=== PATIENT | female | born 1990 | race Caucasian/White ===

== ENCOUNTER 2017-11-05 01:00 | Emergency (ER) | payer MEDICAID ==
[~2017-11-05] VITALS: Ht 172.7 cm; Wt 75.7 kg
[2017-11-05 01:06] VITALS: Ht 172.7 cm; Wt 75.7 kg
[2017-11-05 05:54] VITALS: BP 127/71
== END 2017-11-05 05:15 | disposition home or self-care (01) ==
LOC: ED 01:00
DX: R07.2 Precordial pain (principal); M25.511 Pain in right shoulder; W22.8XXA Striking against or struck by other objects, initial encounter; Y93.89 Activity, other specified; Y92.89 Other specified places as the place of occurrence of the external cause; Y99.8 Other external cause status
CPT/HCPCS: Q0092

== ENCOUNTER 2017-11-30 14:41 | Emergency (ER) | payer MEDICAID ==
[~2017-11-30] VITALS: Ht 172.7 cm; Wt 64.0 kg
[2017-11-30 14:46] VITALS: Ht 172.7 cm; Wt 64.0 kg
[2017-11-30 15:41] VITALS: BP 131/57
== END 2017-11-30 15:41 | disposition home or self-care (01) ==
LOC: ED 14:41
DX: M94.0 Chondrocostal junction syndrome [Tietze] (principal); F15.20 Other stimulant dependence, uncomplicated
CPT/HCPCS: J1885

== ENCOUNTER 2018-01-14 11:50 | Inpatient (IN) | payer MEDICAID ==
[~2018-01-14] VITALS: Ht 172.7 cm; Wt 68.5 kg
[2018-01-14 12:02] VITALS: Ht 172.7 cm; Wt 68.5 kg
[2018-01-14 14:32] LABS: BASOPHIL % 0.6 % (0-2)
[2018-01-14 14:45] LABS: CALCIUM 9.2 mg/dL (8.5-10.1); CARBON DIOXIDE 28.1 mmol/L (21-32); CHLORIDE SERUM 101 mmol/L (98-107); CREATININE SERUM 0.7 mg/dL (0.6-1.0); GFR1 > 60 mL/min; GLUCOSE SERUM 77 mg/dL (74-106); POTASSIUM SERUM 3.4 mmol/L (3.5-5.1); SODIUM SERUM 138 mmol/L (136-145)
[2018-01-14 14:50] LABS: ALBUMIN 3.7 g/dL (3.4-5.0); ALKALINE PHOSPHATASE 103 U/L (46-116); ALT/SGPT 12 U/L (14-59); AST/SGOT 15 U/L (15-37); BILIRUBIN TOTAL 0.32 mg/dL (0.20-1.00); TOTAL PROTEIN, SERUM 8.1 g/dL (6.4-8.2)
[2018-01-14 15:00] LABS: PLATELET COUNT 465 x10^3mcL (130-400); RED CELL DISTRIBUTION WIDTH 14.6 % (11.5-14.5)
[2018-01-14 17:20] VITALS: BP 98/68
[2018-01-14 20:23] VITALS: BP 105/54
[2018-01-14 22:41] VITALS: BP 104/58
[2018-01-15 05:47] VITALS: BP 101/61
[2018-01-15 07:19] LABS: BASOPHIL % 0.5 % (0-2)
[2018-01-15 07:21] LABS: PLATELET COUNT 416 x10^3mcL (130-400); RED CELL DISTRIBUTION WIDTH 14.9 % (11.5-14.5)
[2018-01-15 07:27] LABS: CALCIUM 8.5 mg/dL (8.5-10.1); CARBON DIOXIDE 25.5 mmol/L (21-32); CHLORIDE SERUM 108 mmol/L (98-107); CREATININE SERUM 0.7 mg/dL (0.6-1.0); GFR1 > 60 mL/min; GLUCOSE SERUM 79 mg/dL (74-106); MAGNESIUM 2.1 mg/dL (1.8-2.4); PHOSPHOROUS 4.1 mg/dL (2.5-4.9); POTASSIUM SERUM 4.2 mmol/L (3.5-5.1); SODIUM SERUM 142 mmol/L (136-145)
[2018-01-15 08:17] VITALS: BP 109/63
[2018-01-15 12:36] VITALS: BP 100/70
[2018-01-15 17:05] VITALS: BP 91/59
[2018-01-15 20:29] VITALS: BP 98/65
[2018-01-16 05:02] VITALS: BP 97/55
[2018-01-16 06:36] LABS: BASOPHIL % 0.8 % (0-2); RED CELL DISTRIBUTION WIDTH 14.5 % (11.5-14.5)
[2018-01-16 06:52] LABS: CALCIUM 8.1 mg/dL (8.5-10.1); CARBON DIOXIDE 25.1 mmol/L (21-32); CHLORIDE SERUM 104 mmol/L (98-107); CREATININE SERUM 0.6 mg/dL (0.6-1.0); GFR1 > 60 mL/min; GLUCOSE SERUM 81 mg/dL (74-106); MAGNESIUM 2.2 mg/dL (1.8-2.4); SODIUM SERUM 137 mmol/L (136-145)
[2018-01-16 07:35] LABS: PLATELET COUNT 426 x10^3mcL (130-400)
[2018-01-16 09:12] VITALS: BP 96/54
[2018-01-16 13:32] VITALS: BP 98/62
[2018-01-16 17:56] VITALS: BP 95/62
[2018-01-16 21:15] VITALS: BP 97/57
[2018-01-17 05:20] VITALS: BP 99/63
[2018-01-17 07:56] VITALS: BP 103/67
[2018-01-17 11:47] VITALS: BP 103/67
[2018-01-17] MEDS ORDERED: KETOROLAC TROME10 MG PO (11:48)
[2018-01-17 12:36] VITALS: BP 105/61
== END 2018-01-17 16:48 | disposition home or self-care (01) | DRG 694 ==
LOC: ED 11:50 → DU 16:23
PROVIDERS: Emergency Medicine; Family Medicine
PROC: 0W983ZX Drainage of Chest Wall, Percutaneous Approach, Diagnostic (ICD-10-PCS; principal; 2018-01-15)
DX: D36.7 Benign neoplasm of other specified sites (principal); F12.10 Cannabis abuse, uncomplicated; F15.10 Other stimulant abuse, uncomplicated; Z68.22 Body mass index [BMI] 22.0-22.9, adult; Z59.0 Homelessness
CPT/HCPCS: C1729; J1885; J2001; J2543; J7030; Q9967

== ENCOUNTER 2018-04-25 20:17 | Emergency (ER) | payer MEDICAID ==
[~2018-04-25] VITALS: Ht 172.7 cm; Wt 64.4 kg
[~2018-04-25 20:17] MED LIST: KETOROLAC TROME10 MG PO
[2018-04-25 20:21] VITALS: Ht 172.7 cm; Wt 64.4 kg
[2018-04-25 21:13] VITALS: BP 112/69
== END 2018-04-25 21:13 | disposition home or self-care (01) ==
LOC: ED 20:17
DX: H69.90 Unspecified Eustachian tube disorder, unspecified ear (principal)

== ENCOUNTER 2018-05-04 17:50 | Emergency (ER) | payer MEDICAID ==
[~2018-05-04] VITALS: Ht 172.7 cm; Wt 64.9 kg
[2018-05-04 18:02] VITALS: BP 133/71; Ht 172.7 cm; Wt 64.9 kg
== END 2018-05-04 20:30 | disposition home or self-care (01) ==
LOC: ED 17:50
DX: S29.011A Strain of muscle and tendon of front wall of thorax, initial encounter (principal); X58.XXXA Exposure to other specified factors, initial encounter; Y93.89 Activity, other specified; Y92.89 Other specified places as the place of occurrence of the external cause; Y99.8 Other external cause status
CPT/HCPCS: Q0092

== ENCOUNTER 2018-06-30 16:46 | Emergency (ER) | payer MEDICAID ==
[~2018-06-30] VITALS: Ht 172.7 cm; Wt 66.7 kg
[2018-06-30 16:49] VITALS: Ht 172.7 cm; Wt 66.7 kg
[2018-06-30 19:19] LABS: BASOPHIL % 0.8 % (0-2); PLATELET COUNT 393 x10^3mcL (130-400); RED CELL DISTRIBUTION WIDTH 14.2 % (11.5-14.5)
[2018-06-30 19:25] LABS: UA SPECIFIC GRAVITY 1.025 (1.005-1.035); microscopic required? YES; urine erythrocyte TRACE (NEGATIVE)
[2018-06-30 19:31] LABS: CALCIUM 9.3 mg/dL (8.5-10.1); CHLORIDE SERUM 101 mmol/L (98-107); CREATININE SERUM 0.6 mg/dL (0.6-1.0); GFR1 > 60 mL/min; GLUCOSE SERUM 78 mg/dL (74-106); POTASSIUM SERUM 4.1 mmol/L (3.5-5.1); SODIUM SERUM 137 mmol/L (136-145)
[2018-06-30 19:35] LABS: ALBUMIN 3.5 g/dL (3.4-5.0); ALKALINE PHOSPHATASE 52 U/L (46-116); ALT/SGPT 15 U/L (14-59); AST/SGOT 12 U/L (15-37); BILIRUBIN TOTAL 0.1 mg/dL (0.20-1.00); TOTAL PROTEIN, SERUM 7.5 g/dL (6.4-8.2)
[2018-06-30 20:56] VITALS: BP 118/70
== END 2018-06-30 20:56 | disposition home or self-care (01) ==
LOC: ED 16:46
PROVIDERS: Emergency Medicine
DX: O20.0 Threatened abortion (principal)
CPT/HCPCS: 36415

== ENCOUNTER 2018-09-08 11:21 | Emergency (ER) | payer BC ==
[~2018-09-08] VITALS: Ht 175.3 cm; Wt 65.3 kg
[2018-09-08 11:49] VITALS: Ht 175.3 cm; Wt 65.3 kg
[2018-09-08 15:20] LABS: UA SPECIFIC GRAVITY <=1.005 (1.005-1.035); microscopic required? YES; urine erythrocyte NEGATIVE (NEGATIVE)
[2018-09-08 17:34] VITALS: BP 104/60
== END 2018-09-08 17:42 | disposition home or self-care (01) ==
LOC: ED 11:21
PROVIDERS: Emergency Medicine
DX: O26.892 Other specified pregnancy related conditions, second trimester (principal); O47.02 False labor before 37 completed weeks of gestation, second trimester; Z3A.19 19 weeks gestation of pregnancy
CPT/HCPCS: J3105; J3411; J7030

== ENCOUNTER 2019-06-18 15:54 | Emergency (ER) | payer BC | END 2019-06-18 16:59 | disposition left against medical advice (07) | LOC: ED 15:54 | DX: Z53.21 Procedure and treatment not carried out due to patient leaving prior to being seen by health care provider (principal) ==

== ENCOUNTER 2019-06-19 12:28 | Emergency (ER) | payer BC ==
[~2019-06-19] VITALS: Ht 175.3 cm; Wt 68.9 kg
[2019-06-19 12:46] VITALS: Ht 175.3 cm; Wt 68.9 kg
[2019-06-19 15:15] VITALS: BP 121/77
== END 2019-06-19 15:15 | disposition home or self-care (01) ==
LOC: ED 12:28
DX: R07.89 Other chest pain (principal); R05 Cough; R22.2 Localized swelling, mass and lump, trunk; W01.0XXA Fall on same level from slipping, tripping and stumbling without subsequent striking against object, initial encounter; Y93.89 Activity, other specified; Y92.89 Other specified places as the place of occurrence of the external cause; Y99.8 Other external cause status